=== PATIENT | female | born 1995 | race Caucasian/White ===

== ENCOUNTER 2017-08-01 23:37 | Inpatient (IN) | payer OTHER ==
[2017-08-02] MEDS: DEXTROSE 5%-0.45% NACL 1,000 ML IV ×2 (01:11→11:27)
[2017-08-02] MEDS: morphine 2 MG INJ IV ×6 (01:12→17:12)
[2017-08-02] MEDS: MAGNESIUM HYDROXIDE 30ML CUP PO (01:12)
[2017-08-02 02:30] LABS: ADD MAN DIFF? NO
[2017-08-02 02:33] LABS: EOSINOPHILS % 0.4 % (0.0-7.0); HEMATOCRIT 30.4 % (37.0-47.0); HEMOGLOBIN 9.6 g/dl (12.0-16.0); LYMPHOCYTES # 0.9 10^3/ul (0.8-2.9); LYMPHOCYTES % 8.8 % (15.0-51.0); MEAN CORPUSCULAR HEMOGLOBIN 24.9 pg (29.0-33.0); MEAN CORPUSCULAR HGB CONC 31.6 g/dl (32.0-37.0); MEAN PLATELET VOLUME 12.3 fl (7.4-10.4); MONOCYTE # 1.1 10^3/ul (0.3-0.9); MONOCYTES % 10.7 % (0.0-11.0); NEUTROPHIL # 8.1 10^3/ul (1.6-7.5); NEUTROPHILS % 79.6 % (39.0-77.0); PLATELET COUNT 145 10^3/UL (140-415); RED BLOOD COUNT 3.85 10^6/ul (4.20-5.40); RED CELL DISTRIBUTION WIDTH 19.6 % (11.5-14.5)
[2017-08-02 02:33] LABS: WHITE BLOOD COUNT 10.1 10^3/ul (4.8-10.8)
[2017-08-02 02:54] LABS: ALANINE AMINOTRANSFERASE 35 IU/L (13-69); ALBUMIN 3.4 g/dl (3.3-4.9); ALBUMIN/GLOBULIN RATIO 1.06; ALKALINE PHOSPHATASE 72 IU/L (42-121); ANION GAP 14 (8-16); ASPARTATE AMINO TRANSFERASE 12 IU/L (15-46); BLOOD UREA NITROGEN 3 mg/dl (7-20); CALCIUM 8.5 mg/dl (8.4-10.2); CARBON DIOXIDE 24 mmol/L (21-31); CHLORIDE 103 mmol/L (97-110); CREATININE 0.45 mg/dl (0.44-1.00); GLUCOSE 99 mg/dl (70-220); MAGNESIUM 1.5 mg/dl (1.7-2.5); PHOSPHORUS 2.9 mg/dl (2.5-4.9); POTASSIUM 3.1 mmol/L (3.5-5.1); SODIUM 138 mmol/L (135-144); TOTAL PROTEIN 6.6 g/dl (6.1-8.1)
[2017-08-02] MEDS: POTASSIUM CHLORIDE 50 ML IVPB ×3 (04:21→06:19)
[2017-08-02] MEDS: ONDANSETRON 4 MG INJ IV (05:23)
[2017-08-02] MEDS: MAGNESIUM SULFATE 3 GM in DEXTROSE 5% 100 ML IVPB (08:01)
[2017-08-02] MEDS ORDERED: ACETAMINOPHEN 325 MG TAB (12:14)
[2017-08-02] MEDS: ACETAMINOPHEN 325 MG TAB PO (12:21)
[2017-08-02] MEDS ORDERED: FENTAnyl 50 MCG/ML VIAL ×2 (20:58→22:05)
[2017-08-02] MEDS ORDERED: BUPIVACAINE 0.25% (MPF) 30 ML INJ (21:20)
[2017-08-02] MEDS: LIDOCAINE 1% (MPF) 30 ML INJ (21:39)
[2017-08-02] MEDS: BUPIVACAINE 0.25%/EPI (SDV) 30 ML INJ (21:39)
[2017-08-02] MEDS ORDERED: DIPHENHYDRAMINE 50 MG INJ IV (22:00)
[2017-08-02] MEDS ORDERED: METOCLOPRAMIDE 10 MG INJ IV (22:00)
[2017-08-02] MEDS ORDERED: ONDANSETRON 4 MG INJ IV (22:00)
[2017-08-02] MEDS ORDERED: HYDROmorphONE 1 MG/5 ML IV SYRINGE IV ×2 (22:00)
[2017-08-02] MEDS ORDERED: ALBUTEROL 0.083% (NEB) 2.5 MG/3 ML AMP HHN (22:00)
[2017-08-02] MEDS ORDERED: FENTAnyl 50 MCG/ML VIAL IV ×2 (22:00)
[2017-08-02] MEDS ORDERED: PROPOFOL 20 ML (22:05)
[2017-08-02] MEDS ORDERED: ROCURONIUM 50 MG INJ (22:05)
[2017-08-02] MEDS ORDERED: LIDOCAINE 100 MG SYRINGE (22:05)
[2017-08-02] MEDS ORDERED: CEFAZOLIN 1 GM INJ (22:05)
[2017-08-02] MEDS ORDERED: SUCCINYLCHOLINE CHLORIDE 100 MG/5 ML SYG IV (22:05)
[2017-08-02] MEDS ORDERED: SUGAMMADEX SODIUM 200 MG/2 ML VIAL IV (22:06)
[2017-08-03] MEDS: FENTAnyl 50 MCG/ML VIAL IV ×2 (00:11→00:31)
[2017-08-03] MEDS: ONDANSETRON 4 MG INJ IV (00:11)
[2017-08-03] MEDS: morphine 2 MG INJ IV ×2 (00:12→11:57)
[2017-08-03] MEDS ORDERED: D5-NS + KCL 20 MEQ 1,000 ML IV (00:38)
[2017-08-03] MEDS ORDERED: ONDANSETRON 4 MG INJ IV (01:00)
[2017-08-03] MEDS: D5W-0.45 NACL + KCL 20 MEQ 1,000 ML IV ×2 (01:21→10:38)
[2017-08-03] MEDS: HYDROmorphONE 0.5 MG/0.5 ML SYG IV ×4 (02:28→18:50)
[2017-08-03 06:13] LABS: ADD MAN DIFF? NO
[2017-08-03 06:27] LABS: WHITE BLOOD COUNT 8.1 10^3/ul (4.8-10.8)
[2017-08-03 06:27] LABS: ABNORMAL IP MESSAGE 1; BASOPHILS % 0.1 % (0.0-2.0); HEMATOCRIT 26.2 % (37.0-47.0); HEMOGLOBIN 8.5 g/dl (12.0-16.0); LYMPHOCYTES # 0.5 10^3/ul (0.8-2.9); LYMPHOCYTES % 6.3 % (15.0-51.0); MEAN CORPUSCULAR HEMOGLOBIN 25.4 pg (29.0-33.0); MEAN CORPUSCULAR HGB CONC 32.4 g/dl (32.0-37.0); MEAN CORPUSCULAR VOLUME 78.4 fl (82.0-101.0); MEAN PLATELET VOLUME 12.2 fl (7.4-10.4); MONOCYTE # 0.4 10^3/ul (0.3-0.9); MONOCYTES % 5.2 % (0.0-11.0); NEUTROPHIL # 7.1 10^3/ul (1.6-7.5); PLATELET COUNT 151 10^3/UL (140-415); RED BLOOD COUNT 3.34 10^6/ul (4.20-5.40); RED CELL DISTRIBUTION WIDTH 19.2 % (11.5-14.5)
[2017-08-03 06:33] LABS: POSITIVE DIFF @See below
[2017-08-03 06:43] LABS: IRON 10 ug/dl (35-150)
[2017-08-03 06:54] LABS: % IRON SATURATION 3 % SAT (22-52); TOTAL IRON BINDING CAPACITY 317 ug/dl (241-421)
[2017-08-03 07:00] LABS: ALANINE AMINOTRANSFERASE 32 IU/L (13-69); ALBUMIN 2.9 g/dl (3.3-4.9); ALBUMIN/GLOBULIN RATIO 1.07; ALKALINE PHOSPHATASE 65 IU/L (42-121); ANION GAP 14 (8-16); ASPARTATE AMINO TRANSFERASE 28 IU/L (15-46); BILIRUBIN,INDIRECT 0.3 mg/dl (0-1.1); BILIRUBIN,TOTAL 0.3 mg/dl (0.2-1.3); BLOOD UREA NITROGEN 4 mg/dl (7-20); CALCIUM 7.8 mg/dl (8.4-10.2); CARBON DIOXIDE 24 mmol/L (21-31); CHLORIDE 103 mmol/L (97-110); CREATININE 0.39 mg/dl (0.44-1.00); GLUCOSE 120 mg/dl (70-220); POTASSIUM 3.7 mmol/L (3.5-5.1); SODIUM 137 mmol/L (135-144); TOTAL PROTEIN 5.6 g/dl (6.1-8.1)
[2017-08-03 07:19] LABS: FERRITIN 29.8 ng/ml (6.2-137.0)
[2017-08-03] MEDS: FAMOTIDINE 20 MG INJ IV (08:31)
[2017-08-03] MEDS: CEPASTAT LOZENGE MT (17:59)
[2017-08-03] MEDS ORDERED: morphine LIQ (10 MG/5 ML) CUP PO (23:00)
[2017-08-04] MEDS: HYDROmorphONE 0.5 MG/0.5 ML SYG IV ×2 (03:36→11:20)
[2017-08-04 07:09] LABS: ADD MAN DIFF? NO
[2017-08-04 07:28] LABS: BASOPHILS % 0.2 % (0.0-2.0); EOSINOPHILS % 0.8 % (0.0-7.0); HEMATOCRIT 24.4 % (37.0-47.0); HEMOGLOBIN 7.9 g/dl (12.0-16.0); LYMPHOCYTES # 0.9 10^3/ul (0.8-2.9); LYMPHOCYTES % 18.3 % (15.0-51.0); MEAN CORPUSCULAR HEMOGLOBIN 25.5 pg (29.0-33.0); MEAN CORPUSCULAR HGB CONC 32.4 g/dl (32.0-37.0); MEAN CORPUSCULAR VOLUME 78.7 fl (82.0-101.0); MEAN PLATELET VOLUME 11.9 fl (7.4-10.4); MONOCYTE # 0.4 10^3/ul (0.3-0.9); MONOCYTES % 7.3 % (0.0-11.0); NEUTROPHIL # 3.7 10^3/ul (1.6-7.5); PLATELET COUNT 175 10^3/UL (140-415); RED CELL DISTRIBUTION WIDTH 19.4 % (11.5-14.5)
[2017-08-04] MEDS: CEPASTAT LOZENGE MT (12:46)
[2017-08-04] MEDS: HYDROCODONE/APAP (10/325) TAB PO (16:15)
== END 2017-08-04 21:12 | disposition home or self-care (01) | DRG 781 ==
LOC: PP2 23:37
PROC: 0FT44ZZ Resection of Gallbladder, Percutaneous Endoscopic Approach (ICD-10-PCS; principal; 2017-08-02 18:00)
DX: O99.612 Diseases of the digestive system complicating pregnancy, second trimester (principal); K80.00 Calculus of gallbladder with acute cholecystitis without obstruction; O99.212 Obesity complicating pregnancy, second trimester; E66.01 Morbid (severe) obesity due to excess calories; Z68.31 Body mass index [BMI] 31.0-31.9, adult; Z3A.16 16 weeks gestation of pregnancy
CPT/HCPCS: 76700; 76805; 80053; 82728; 83540; 83735; 84100; 85025

== ENCOUNTER 2017-08-26 11:58 | Emergency (ER) | payer SELFPAY, OTHER | END 2017-08-26 12:23 | disposition left against medical advice (07) | LOC: E/R 12:23 | DX: Z53.21 Procedure and treatment not carried out due to patient leaving prior to being seen by health care provider (principal) ==

== ENCOUNTER 2017-08-26 12:28 | Outpatient (CLI) | payer OTHER | END 2017-08-26 13:20 | disposition home or self-care (01) | LOC: OBT 12:28 → L-D 12:29 → OBT 13:20 | DX: O26.893 Other specified pregnancy related conditions, third trimester (principal); R10.2 Pelvic and perineal pain; Z3A.20 20 weeks gestation of pregnancy | CPT/HCPCS: Z7500 ==

== ENCOUNTER 2017-08-26 13:22 | Inpatient (IN) | payer OTHER ==
[2017-08-26] MEDS: FAMOTIDINE 20 MG INJ IV (15:16)
[2017-08-26] MEDS: ONDANSETRON 4 MG INJ IV ×2 (15:16→20:09)
[2017-08-26] MEDS: ACETAMINOPHEN 500 MG TAB PO (15:16)
[2017-08-26 15:23] LABS: ADD MAN DIFF? NO
[2017-08-26 15:24] LABS: WHITE BLOOD COUNT 7.8 10^3/ul (4.8-10.8)
[2017-08-26 15:24] LABS: BASOPHILS % 0.3 % (0.0-2.0); EOSINOPHILS % 0.4 % (0.0-7.0); HEMATOCRIT 32.4 % (37.0-47.0); HEMOGLOBIN 10.3 g/dl (12.0-16.0); LYMPHOCYTES # 0.9 10^3/ul (0.8-2.9); LYMPHOCYTES % 11.1 % (15.0-51.0); MEAN CORPUSCULAR HEMOGLOBIN 24.7 pg (29.0-33.0); MEAN CORPUSCULAR HGB CONC 31.8 g/dl (32.0-37.0); MEAN CORPUSCULAR VOLUME 77.7 fl (82.0-101.0); MEAN PLATELET VOLUME 12.2 fl (7.4-10.4); MONOCYTE # 0.5 10^3/ul (0.3-0.9); MONOCYTES % 6.3 % (0.0-11.0); NEUTROPHIL # 6.4 10^3/ul (1.6-7.5); NEUTROPHILS % 81.5 % (39.0-77.0); PLATELET COUNT 212 10^3/UL (140-415); RED BLOOD COUNT 4.17 10^6/ul (4.20-5.40)
[2017-08-26] MEDS: SOD CHLORIDE 0.9% 1,000 ML IV (15:28)
[2017-08-26 15:37] LABS: ADD UMIC YES; UR ASCORBIC ACID NEGATIVE (NEGATIVE); UR BACTERIA FEW /HPF (NONE SEEN); UR BILIRUBIN (Dip) 2+ mg/dL (NEGATIVE); UR BLOOD (Dip) NEGATIVE (NEGATIVE); UR CLARITY SLIGHTLY CLOUDY (CLEAR); UR COLOR AMBER (YELLOW); UR GLUCOSE (Dip) NEGATIVE (NEGATIVE); UR KETONES (Dip) NEGATIVE (NEGATIVE); UR LEUKOCYTE ESTERASE (Dip) 2+ Leu/ul (NEGATIVE); UR MUCUS MODERATE /HPF (NONE SEEN); UR NITRITE (Dip) NEGATIVE (NEGATIVE); UR RBC 11 /HPF (0-5); UR SPECIFIC GRAVITY (Dip) 1.024 (1.003-1.030); UR SQUAMOUS EPITHELIAL CELL MODERATE /HPF (FEW); UR TOTAL PROTEIN (Dip) 1+ mg/dl (NEGATIVE); UR UROBILINOGEN (Dip) 2+ mg/dL (NEGATIVE); UR WBC 21 /HPF (0-5)
[2017-08-26 15:51] LABS: ALANINE AMINOTRANSFERASE 82 IU/L (13-69); ALBUMIN 3.7 g/dl (3.3-4.9); ALBUMIN/GLOBULIN RATIO 1.08; ALKALINE PHOSPHATASE 147 IU/L (42-121); ANION GAP 13 (8-16); ASPARTATE AMINO TRANSFERASE 102 IU/L (15-46); BILIRUBIN,INDIRECT 1.3 mg/dl (0-1.1); BILIRUBIN,TOTAL 1.8 mg/dl (0.2-1.3); BLOOD UREA NITROGEN 3 mg/dl (7-20); CALCIUM 9.2 mg/dl (8.4-10.2); CARBON DIOXIDE 21 mmol/L (21-31); CHLORIDE 106 mmol/L (97-110); CREATININE 0.39 mg/dl (0.44-1.00); GLUCOSE 92 mg/dl (70-220); LIPASE 60 U/L (23-300); POTASSIUM 3.6 mmol/L (3.5-5.1); SODIUM 136 mmol/L (135-144); TOTAL PROTEIN 7.1 g/dl (6.1-8.1)
[2017-08-26] MEDS: CEPHALEXIN 500 MG CAP PO (17:12)
[2017-08-26] MEDS ORDERED: ACETAMINOPHEN 325 MG TAB PO ×2 (19:00→19:30)
[2017-08-26] MEDS ORDERED: ALBUTEROL/IPRATROPIUM (NEB) 3 ML AMP HHN (19:30)
[2017-08-26] MEDS ORDERED: NA PHOSPHATE/BIPHOS 133 ML ENEMA PR (19:30)
[2017-08-26] MEDS ORDERED: LORAZEPAM 2 MG INJ IV (19:30)
[2017-08-26] MEDS ORDERED: hydrALAzine 20 MG INJ IV (19:30)
[2017-08-26] MEDS ORDERED: NITROGLYCERIN (SL) 0.4 MG TAB SL (19:30)
[2017-08-26] MEDS ORDERED: NACL 0.9% 3 ML SYG IV (19:30)
[2017-08-26] MEDS ORDERED: DOCUSATE SODIUM 100 MG CAP PO (19:30)
[2017-08-26] MEDS: SOD CHLORIDE 0.45% 1,000 ML IV (19:55)
[2017-08-26] MEDS: morphine 2 MG INJ IV (20:12)
[2017-08-26 20:24] LABS: LACTIC ACID 0.8 mmol/L (0.5-2.0)
[2017-08-26 20:27] LABS: INR 0.98; PARTIAL THROMBOPLASTIN TIME 28.2 Sec (25.0-35.0); PROTIME 13.1 Sec (11.9-14.9)
[2017-08-26 20:41] LABS: FREE T4 (FREE THYROXINE) 0.86 ng/dl (0.79-2.35)
[2017-08-26] MEDS: HYDROCODONE/APAP (5/325) TAB PO (22:46)
[2017-08-27] MEDS: morphine 2 MG INJ IV ×5 (02:14→20:26)
[2017-08-27 05:07] LABS: ADD MAN DIFF? NO
[2017-08-27 05:34] LABS: WHITE BLOOD COUNT 5.2 10^3/ul (4.8-10.8)
[2017-08-27 05:34] LABS: ABNORMAL IP MESSAGE 1; BASOPHILS % 0.2 % (0.0-2.0); EOSINOPHILS % 0.6 % (0.0-7.0); HEMOGLOBIN 8.9 g/dl (12.0-16.0); LYMPHOCYTES # 0.9 10^3/ul (0.8-2.9); MEAN CORPUSCULAR HEMOGLOBIN 24.2 pg (29.0-33.0); MEAN CORPUSCULAR HGB CONC 30.7 g/dl (32.0-37.0); MEAN CORPUSCULAR VOLUME 78.8 fl (82.0-101.0); MEAN PLATELET VOLUME 13.4 fl (7.4-10.4); MONOCYTE # 0.3 10^3/ul (0.3-0.9); MONOCYTES % 6.6 % (0.0-11.0); NEUTROPHIL # 3.8 10^3/ul (1.6-7.5); NEUTROPHILS % 74.2 % (39.0-77.0); RED BLOOD COUNT 3.68 10^6/ul (4.20-5.40); RED CELL DISTRIBUTION WIDTH 17.2 % (11.5-14.5)
[2017-08-27 05:49] LABS: LACTIC ACID 0.7 mmol/L (0.5-2.0)
[2017-08-27 05:50] LABS: ANION GAP 10 (8-16); CALCIUM 8.4 mg/dl (8.4-10.2); CARBON DIOXIDE 24 mmol/L (21-31); CHLORIDE 109 mmol/L (97-110); CREATININE 0.44 mg/dl (0.44-1.00); GLUCOSE 93 mg/dl (70-220); MAGNESIUM 1.7 mg/dl (1.7-2.5); PHOSPHORUS 3.7 mg/dl (2.5-4.9); POTASSIUM 3.7 mmol/L (3.5-5.1); SODIUM 139 mmol/L (135-144)
[2017-08-27 06:12] LABS: CHOLESTEROL 164 mg/dl (100-200)
[2017-08-27 06:12] LABS: CHOL/HDL RATIO 3.2 RATIO; HDL CHOLESTEROL 51 mg/dl (33-83); LDL CHOLESTEROL,CALCULATED 86 mg/dl; TRIGLYCERIDES 136 mg/dl (0-149)
[2017-08-27 06:18] LABS: THYROID STIMULATING HORMONE 0.671 MIU/L (0.465-4.680)
[2017-08-27 06:27] LABS: POSITIVE DIFF @See below
[2017-08-27 06:28] LABS: PLATELET COUNT 164 10^3/UL (140-415)
[2017-08-27] MEDS: SOD CHLORIDE 0.45% 1,000 ML IV ×2 (06:39→20:26)
[2017-08-27 06:50] LABS: BLOOD UREA NITROGEN < 2 mg/dl (7-20)
[2017-08-27 08:21] LABS: HEMOGLOBIN A1C 5.2 % (0-5.9)
[2017-08-27 08:26] LABS: LACTIC ACID 0.7 mmol/L (0.5-2.0)
[2017-08-27] MEDS: HYDROCODONE/APAP (5/325) TAB PO ×2 (09:21→18:46)
[2017-08-27] MEDS: ONDANSETRON 4 MG INJ IV ×2 (09:22→16:57)
[2017-08-27 11:02] LABS: ALANINE AMINOTRANSFERASE 76 IU/L (13-69); ALBUMIN 2.9 g/dl (3.3-4.9); ALKALINE PHOSPHATASE 127 IU/L (42-121); ASPARTATE AMINO TRANSFERASE 65 IU/L (15-46); BILIRUBIN,INDIRECT 1.5 mg/dl (0-1.1); BILIRUBIN,TOTAL 2.8 mg/dl (0.2-1.3); TOTAL PROTEIN 5.9 g/dl (6.1-8.1)
[2017-08-27 14:19] LABS: LACTIC ACID 0.6 mmol/L (0.5-2.0)
[2017-08-27 19:10] LABS: LACTIC ACID 0.9 mmol/L (0.5-2.0)
[2017-08-28] MEDS: HYDROCODONE/APAP (5/325) TAB PO (01:33)
[2017-08-28 05:27] LABS: WHITE BLOOD COUNT 5.5 10^3/ul (4.8-10.8)
[2017-08-28 05:27] LABS: ADD MAN DIFF? NO; BASOPHILS % 0.2 % (0.0-2.0); EOSINOPHILS # 0.1 10^3/ul (0.0-0.5); EOSINOPHILS % 0.9 % (0.0-7.0); HEMATOCRIT 29.2 % (37.0-47.0); HEMOGLOBIN 9.2 g/dl (12.0-16.0); LYMPHOCYTES % 17.1 % (15.0-51.0); MEAN CORPUSCULAR HEMOGLOBIN 24.9 pg (29.0-33.0); MEAN CORPUSCULAR HGB CONC 31.5 g/dl (32.0-37.0); MEAN CORPUSCULAR VOLUME 78.9 fl (82.0-101.0); MONOCYTE # 0.3 10^3/ul (0.3-0.9); MONOCYTES % 5.8 % (0.0-11.0); NEUTROPHIL # 4.2 10^3/ul (1.6-7.5); NEUTROPHILS % 75.6 % (39.0-77.0); PLATELET COUNT 145 10^3/UL (140-415)
[2017-08-28 05:37] LABS: LACTIC ACID 0.5 mmol/L (0.5-2.0)
[2017-08-28 05:44] LABS: ALANINE AMINOTRANSFERASE 71 IU/L (13-69); ALBUMIN 3.2 g/dl (3.3-4.9); ALKALINE PHOSPHATASE 147 IU/L (42-121); ASPARTATE AMINO TRANSFERASE 56 IU/L (15-46); BILIRUBIN,INDIRECT 1.1 mg/dl (0-1.1); BILIRUBIN,TOTAL 2.7 mg/dl (0.2-1.3); TOTAL PROTEIN 6.2 g/dl (6.1-8.1)
[2017-08-28 05:49] LABS: ANION GAP 12 (8-16); CALCIUM 8.5 mg/dl (8.4-10.2); CARBON DIOXIDE 21 mmol/L (21-31); CHLORIDE 109 mmol/L (97-110); CREATININE 0.39 mg/dl (0.44-1.00); GLUCOSE 72 mg/dl (70-220); POTASSIUM 3.5 mmol/L (3.5-5.1); SODIUM 138 mmol/L (135-144)
[2017-08-28 06:51] LABS: BLOOD UREA NITROGEN < 2 mg/dl (7-20)
[2017-08-28] MEDS: morphine 2 MG INJ IV (08:03)
[2017-08-28] MEDS: SOD CHLORIDE 0.45% 1,000 ML IV ×2 (08:37→22:08)
[2017-08-28 14:52] LABS: ALANINE AMINOTRANSFERASE 79 IU/L (13-69); ALBUMIN 3.2 g/dl (3.3-4.9); ALBUMIN/GLOBULIN RATIO 0.96; ALKALINE PHOSPHATASE 145 IU/L (42-121); ANION GAP 11 (8-16); ASPARTATE AMINO TRANSFERASE 64 IU/L (15-46); BILIRUBIN,INDIRECT 1.1 mg/dl (0-1.1); BILIRUBIN,TOTAL 2.5 mg/dl (0.2-1.3); BLOOD UREA NITROGEN 2 mg/dl (7-20); CALCIUM 8.3 mg/dl (8.4-10.2); CARBON DIOXIDE 21 mmol/L (21-31); CHLORIDE 108 mmol/L (97-110); CREATININE 0.39 mg/dl (0.44-1.00); GLUCOSE 81 mg/dl (70-220); POTASSIUM 3.3 mmol/L (3.5-5.1); SODIUM 137 mmol/L (135-144); TOTAL PROTEIN 6.5 g/dl (6.1-8.1)
[2017-08-29 05:16] LABS: ADD MAN DIFF? NO
[2017-08-29 05:21] LABS: WHITE BLOOD COUNT 5.4 10^3/ul (4.8-10.8)
[2017-08-29 05:21] LABS: BASOPHILS % 0.2 % (0.0-2.0); EOSINOPHILS # 0.1 10^3/ul (0.0-0.5); EOSINOPHILS % 1.7 % (0.0-7.0); HEMATOCRIT 30.7 % (37.0-47.0); HEMOGLOBIN 9.7 g/dl (12.0-16.0); LYMPHOCYTES # 1.2 10^3/ul (0.8-2.9); LYMPHOCYTES % 22.2 % (15.0-51.0); MEAN CORPUSCULAR HEMOGLOBIN 24.6 pg (29.0-33.0); MEAN CORPUSCULAR HGB CONC 31.6 g/dl (32.0-37.0); MEAN CORPUSCULAR VOLUME 77.7 fl (82.0-101.0); MEAN PLATELET VOLUME 12.5 fl (7.4-10.4); MONOCYTE # 0.5 10^3/ul (0.3-0.9); MONOCYTES % 8.4 % (0.0-11.0); NEUTROPHIL # 3.6 10^3/ul (1.6-7.5); NEUTROPHILS % 67.1 % (39.0-77.0); PLATELET COUNT 163 10^3/UL (140-415); RED BLOOD COUNT 3.95 10^6/ul (4.20-5.40); RED CELL DISTRIBUTION WIDTH 17.1 % (11.5-14.5)
[2017-08-29 05:46] LABS: ANION GAP 8 (8-16); BLOOD UREA NITROGEN 2 mg/dl (7-20); CALCIUM 8.4 mg/dl (8.4-10.2); CARBON DIOXIDE 24 mmol/L (21-31); CHLORIDE 109 mmol/L (97-110); CREATININE 0.41 mg/dl (0.44-1.00); GLUCOSE 89 mg/dl (70-220); POTASSIUM 3.4 mmol/L (3.5-5.1); SODIUM 138 mmol/L (135-144)
[2017-08-29] MEDS: SOD CHLORIDE 0.45% 1,000 ML IV ×2 (13:07→22:22)
[2017-08-29] MEDS: HYDROCODONE/APAP (5/325) TAB PO ×2 (13:07→18:43)
[2017-08-29 14:00] LABS: ALANINE AMINOTRANSFERASE 98 IU/L (13-69); ALKALINE PHOSPHATASE 149 IU/L (42-121); ASPARTATE AMINO TRANSFERASE 74 IU/L (15-46); BILIRUBIN,INDIRECT 0.7 mg/dl (0-1.1); BILIRUBIN,TOTAL 0.7 mg/dl (0.2-1.3); TOTAL PROTEIN 5.8 g/dl (6.1-8.1)
[2017-08-29] MEDS: morphine LIQ (10 MG/5 ML) CUP PO (16:58)
[2017-08-30 04:51] LABS: ADD MAN DIFF? NO
[2017-08-30 04:52] LABS: WHITE BLOOD COUNT 6.1 10^3/ul (4.8-10.8)
[2017-08-30 04:52] LABS: BASOPHILS % 0.3 % (0.0-2.0); EOSINOPHILS # 0.1 10^3/ul (0.0-0.5); EOSINOPHILS % 1.3 % (0.0-7.0); HEMATOCRIT 29.3 % (37.0-47.0); HEMOGLOBIN 9.4 g/dl (12.0-16.0); LYMPHOCYTES # 1.3 10^3/ul (0.8-2.9); LYMPHOCYTES % 20.6 % (15.0-51.0); MEAN CORPUSCULAR HEMOGLOBIN 24.9 pg (29.0-33.0); MEAN CORPUSCULAR HGB CONC 32.1 g/dl (32.0-37.0); MEAN CORPUSCULAR VOLUME 77.5 fl (82.0-101.0); MEAN PLATELET VOLUME 12.1 fl (7.4-10.4); MONOCYTE # 0.4 10^3/ul (0.3-0.9); MONOCYTES % 6.5 % (0.0-11.0); NEUTROPHIL # 4.3 10^3/ul (1.6-7.5); NEUTROPHILS % 71.1 % (39.0-77.0); PLATELET COUNT 146 10^3/UL (140-415); RED BLOOD COUNT 3.78 10^6/ul (4.20-5.40); RED CELL DISTRIBUTION WIDTH 17.9 % (11.5-14.5)
[2017-08-30 05:11] LABS: ANION GAP 8 (8-16); BLOOD UREA NITROGEN 2 mg/dl (7-20); CALCIUM 8.5 mg/dl (8.4-10.2); CARBON DIOXIDE 25 mmol/L (21-31); CHLORIDE 107 mmol/L (97-110); GLUCOSE 90 mg/dl (70-220); POTASSIUM 3.3 mmol/L (3.5-5.1); SODIUM 137 mmol/L (135-144)
[2017-08-30] MEDS: POTASSIUM CHLORIDE (SR) 20 MEQ TAB PO ×2 (09:00→12:31)
[2017-08-30] MEDS: HYDROCODONE/APAP (5/325) TAB PO ×2 (10:00→15:18)
[2017-08-30] MEDS: morphine LIQ (10 MG/5 ML) CUP PO (11:36)
[2017-08-30 12:09] LABS: ALANINE AMINOTRANSFERASE 108 IU/L (13-69); ALBUMIN 3.1 g/dl (3.3-4.9); ALKALINE PHOSPHATASE 137 IU/L (42-121); ASPARTATE AMINO TRANSFERASE 75 IU/L (15-46); BILIRUBIN,INDIRECT 0.6 mg/dl (0-1.1); BILIRUBIN,TOTAL 0.6 mg/dl (0.2-1.3); TOTAL PROTEIN 6.2 g/dl (6.1-8.1)
[2017-08-30] MEDS: SOD CHLORIDE 0.45% 1,000 ML IV (12:20)
[2017-08-31] MEDS: MAGNESIUM HYDROXIDE 30ML CUP PO (00:40)
[2017-08-31] MEDS: SOD CHLORIDE 0.45% 1,000 ML IV ×3 (00:41→19:20)
[2017-08-31 05:00] LABS: ADD MAN DIFF? NO
[2017-08-31 05:06] LABS: WHITE BLOOD COUNT 5.9 10^3/ul (4.8-10.8)
[2017-08-31 05:06] LABS: BASOPHILS % 0.3 % (0.0-2.0); EOSINOPHILS # 0.1 10^3/ul (0.0-0.5); EOSINOPHILS % 1.2 % (0.0-7.0); HEMATOCRIT 30.7 % (37.0-47.0); HEMOGLOBIN 9.7 g/dl (12.0-16.0); LYMPHOCYTES # 1.4 10^3/ul (0.8-2.9); LYMPHOCYTES % 23.2 % (15.0-51.0); MEAN CORPUSCULAR HEMOGLOBIN 24.7 pg (29.0-33.0); MEAN CORPUSCULAR HGB CONC 31.6 g/dl (32.0-37.0); MEAN CORPUSCULAR VOLUME 78.1 fl (82.0-101.0); MEAN PLATELET VOLUME 12.1 fl (7.4-10.4); MONOCYTE # 0.4 10^3/ul (0.3-0.9); MONOCYTES % 6.3 % (0.0-11.0); NEUTROPHILS % 68.7 % (39.0-77.0); PLATELET COUNT 154 10^3/UL (140-415); RED BLOOD COUNT 3.93 10^6/ul (4.20-5.40); RED CELL DISTRIBUTION WIDTH 17.6 % (11.5-14.5)
[2017-08-31 05:35] LABS: ALANINE AMINOTRANSFERASE 112 IU/L (13-69); ALBUMIN 3.3 g/dl (3.3-4.9); ALBUMIN/GLOBULIN RATIO 1.06; ALKALINE PHOSPHATASE 130 IU/L (42-121); ANION GAP 11 (8-16); ASPARTATE AMINO TRANSFERASE 64 IU/L (15-46); BILIRUBIN,INDIRECT 0.7 mg/dl (0-1.1); BILIRUBIN,TOTAL 0.7 mg/dl (0.2-1.3); BLOOD UREA NITROGEN 4 mg/dl (7-20); CALCIUM 8.8 mg/dl (8.4-10.2); CARBON DIOXIDE 24 mmol/L (21-31); CHLORIDE 106 mmol/L (97-110); CREATININE 0.38 mg/dl (0.44-1.00); GLUCOSE 83 mg/dl (70-220); MAGNESIUM 1.6 mg/dl (1.7-2.5); POTASSIUM 3.7 mmol/L (3.5-5.1); SODIUM 137 mmol/L (135-144); TOTAL PROTEIN 6.4 g/dl (6.1-8.1)
[2017-09-01 05:31] LABS: ADD MAN DIFF? NO
[2017-09-01 05:39] LABS: ABNORMAL IP MESSAGE 1; BASOPHILS % 0.3 % (0.0-2.0); EOSINOPHILS # 0.1 10^3/ul (0.0-0.5); EOSINOPHILS % 1.6 % (0.0-7.0); HEMATOCRIT 31.2 % (37.0-47.0); HEMOGLOBIN 9.8 g/dl (12.0-16.0); LYMPHOCYTES # 1.7 10^3/ul (0.8-2.9); LYMPHOCYTES % 23.9 % (15.0-51.0); MEAN CORPUSCULAR HEMOGLOBIN 24.6 pg (29.0-33.0); MEAN CORPUSCULAR HGB CONC 31.4 g/dl (32.0-37.0); MEAN CORPUSCULAR VOLUME 78.2 fl (82.0-101.0); MEAN PLATELET VOLUME 12.6 fl (7.4-10.4); MONOCYTE # 0.6 10^3/ul (0.3-0.9); MONOCYTES % 8.3 % (0.0-11.0); NEUTROPHIL # 4.6 10^3/ul (1.6-7.5); NEUTROPHILS % 65.5 % (39.0-77.0); PLATELET COUNT 156 10^3/UL (140-415); RED BLOOD COUNT 3.99 10^6/ul (4.20-5.40); RED CELL DISTRIBUTION WIDTH 18.4 % (11.5-14.5)
[2017-09-01 05:49] LABS: POSITIVE DIFF @See below
[2017-09-01 05:53] LABS: ALANINE AMINOTRANSFERASE 97 IU/L (13-69); ALBUMIN 3.4 g/dl (3.3-4.9); ALBUMIN/GLOBULIN RATIO 1.06; ALKALINE PHOSPHATASE 119 IU/L (42-121); ANION GAP 12 (8-16); ASPARTATE AMINO TRANSFERASE 49 IU/L (15-46); BILIRUBIN,INDIRECT 0.6 mg/dl (0-1.1); BILIRUBIN,TOTAL 0.6 mg/dl (0.2-1.3); BLOOD UREA NITROGEN 3 mg/dl (7-20); CALCIUM 8.8 mg/dl (8.4-10.2); CARBON DIOXIDE 25 mmol/L (21-31); CHLORIDE 106 mmol/L (97-110); CREATININE 0.43 mg/dl (0.44-1.00); GLUCOSE 86 mg/dl (70-220); MAGNESIUM 1.7 mg/dl (1.7-2.5); SODIUM 139 mmol/L (135-144); TOTAL PROTEIN 6.6 g/dl (6.1-8.1)
[2017-09-01] MEDS: SOD CHLORIDE 0.45% 1,000 ML IV ×2 (08:40→17:00)
[2017-09-01] MEDS: MAGNESIUM OXIDE 400 MG TAB PO (11:30)
== END 2017-09-01 18:15 | disposition home or self-care (01) | DRG 781 ==
LOC: FTE 13:22 → MS1 19:00
DX: O99.612 Diseases of the digestive system complicating pregnancy, second trimester (principal); O23.42 Unspecified infection of urinary tract in pregnancy, second trimester; K80.50 Calculus of bile duct without cholangitis or cholecystitis without obstruction; Z3A.19 19 weeks gestation of pregnancy
CPT/HCPCS: 36415; 74181; 76705; 76805; 80048; 80053; 80061; 80076; 81001; 83036; 83605; 83690; 83735; 84100; 84439; 84443; 85025; 85610; 85730; 87040; 87086; 96361; 96374; 96375; 99285-25